=== PATIENT | female | born 2000 | race Caucasian/White ===

== ENCOUNTER 2022-03-13 18:50 | Inpatient (IN) | payer BC, MEDICAID ==
[~2022-03-13] VITALS: Ht 162.6 cm; Wt 93.4 kg
[2022-03-13] MEDS ORDERED: SODIUM CHLORIDE 0.9% 1,000 ML IV ONE ×3 (19:00→19:30)
[2022-03-13] MEDS ORDERED: InsuLIN R (HUMAN) 100 UNITS in SODIUM CHL 0.9% 99 ML IV SCH ×2 (19:30→23:00)
[2022-03-13] MEDS ORDERED: INSULIN LANTUS (GLARGINE) 1 /0.01ml (100units/ml) SC ONE ×3 (19:30→23:30)
[2022-03-13] MEDS ORDERED: DEXTROSE (50%) 50ML SYRG IV PRN ×2 (19:30→23:00)
[2022-03-13] MEDS: ACCU-CHEK COMFORT CURVE STRIP VI SCH ×3 (19:30→22:30)
[2022-03-13 19:42] LABS: Urine Amorphous Crystal MOD /hpf (None Seen); Urine Bacteria FEW /hpf (None Seen); Urine Blood 2+ /uL (Negative); Urine Mucus FEW (None Seen); Urine Specific Gravity 1.014 (1.001-1.035); Urine WBC 1 /hpf (0 - 5)
[2022-03-13] MEDS ORDERED: SODIUM BICARBONATE 8.4 % INJ 50ML VIAL IV ONE (20:15)
[2022-03-13 20:22] LABS: Basophils # (auto) 0.1 10 ^3/uL (0-0.2); Basophils % (auto) 0.3 % (0.0-2.0); Eosinophils # (auto) 0 10 ^3/uL (0-0.8); Hematocrit 43.4 % (36.0-46.0); Hemoglobin 13.8 g/dL (12.2-16.2); Lymphocytes % (auto) 5.9 % (10.0-50.0); Mean Corpuscular Hgb Conc. 31.9 g/dL (32.0-36.0); Mean Corpuscular Volume 94.2 fL (80.0-100.0); Monocytes # (auto) 1.9 10 ^3/uL (0-1.3); Monocytes % (auto) 10.6 % (0.0-12.0); Neutrophils # (auto) 14.6 10 ^3/uL (1.6-8.6); Neutrophils % (auto) 83.2 % (37.0-80.0); Red Blood Cells 4.61 10^6/uL (4.0-5.20); Red Cell Distribution Width 14.4 % (11.8-14.3); White Blood Cell 17.5 10^3/uL (4.4-10.8)
[2022-03-13] MEDS ORDERED: InsuLIN REG 1unit/0.01ml Soln (100units/ml) ONE (20:44)
[2022-03-13 20:48] LABS: Albumin 3.1 g/dL (3.4-5.0); BUN/Creatinine Ratio 12.8; Calcium 8.6 mg/dL (8.5-10.1); Potassium 3.7 mmol/L (3.5-5.1)
[2022-03-13 20:51] LABS: Bilirubin, Total 0.3 mg/dL (0.2-1.0); Total Protein 6.3 g/dL (6.4-8.2)
[2022-03-13] MEDS: SODIUM CHLORIDE 0.9% 1,000 ML IV SCH (23:00)
[2022-03-13] MEDS ORDERED: DOCUSATE SOD 100 MG CAP PO PRN (23:00)
[2022-03-13] MEDS ORDERED: LORazepam 0.5 MG TAB PO PRN (23:00)
[2022-03-13] MEDS ORDERED: TEMAZEPAM 15 MG CAP PO PRN (23:00)
[2022-03-13] MEDS ORDERED: MORPHINE SULFATE INJ 2 MG/ml SYRG IV PRN (23:00)
[2022-03-13] MEDS ORDERED: HYDROcodone-ACET 5/325MG TAB PO PRN (23:00)
[2022-03-13] MEDS ORDERED: D5W/SOD CHL 0.45%/KCL 20MEQ 1,000 ML IV SCH (23:00)
[2022-03-13] MEDS ORDERED: ACETAMINOPHEN 325 MG TAB PO PRN (23:00)
[2022-03-13] MEDS ORDERED: ONDANSETRON HCL 4 MG/2 ML VIAL IV PRN (23:00)
[2022-03-13] MEDS: cefTRIAXone 1GM/50ML D5W 50 ML IV SCH (23:37)
[2022-03-14] MEDS ORDERED: DEXTROSE (50%) 50ML SYRG IV PRN
[2022-03-14] MEDS ORDERED: ACCU-CHEK COMFORT CURVE STRIP VI SCH
[2022-03-14] MEDS: ACCU-CHEK COMFORT CURVE STRIP VI SCH ×13 (00:03→22:58)
[2022-03-14 00:12] LABS: BUN/Creatinine Ratio 11.7; Calcium 8.9 mg/dL (8.5-10.1); Potassium 3.3 mmol/L (3.5-5.1)
[2022-03-14] MEDS: SODIUM CHLORIDE 0.9% 1,000 ML IV SCH ×4 (01:00→18:23)
[2022-03-14] MEDS ORDERED: SODIUM CHLORIDE 0.9% 1,000 ML IV SCH (03:00)
[2022-03-14] MEDS: InsuLIN REG 1unit/0.01ml Soln (100units/ml) SC SCH ×2 (03:38)
[2022-03-14 04:58] LABS: Basophils # (auto) 0 10 ^3/uL (0-0.2); Basophils % (auto) 0.2 % (0.0-2.0); Eosinophils # (auto) 0 10 ^3/uL (0-0.8); Hematocrit 40.1 % (36.0-46.0); Hemoglobin 13.4 g/dL (12.2-16.2); Lymphocytes # (auto) 0.5 10 ^3/uL (0.4-5.4); Lymphocytes % (auto) 5.3 % (10.0-50.0); Mean Corpuscular Hemoglobin 30.2 pg (28.0-32.0); Mean Corpuscular Hgb Conc. 33.4 g/dL (32.0-36.0); Mean Corpuscular Volume 90.2 fL (80.0-100.0); Monocytes # (auto) 0.8 10 ^3/uL (0-1.3); Monocytes % (auto) 8.3 % (0.0-12.0); Neutrophils # (auto) 8.7 10 ^3/uL (1.6-8.6); Neutrophils % (auto) 86.2 % (37.0-80.0); Red Blood Cells 4.44 10^6/uL (4.0-5.20); Red Cell Distribution Width 14.1 % (11.8-14.3)
[2022-03-14 05:21] LABS: BUN/Creatinine Ratio 10.5; Calcium 7.9 mg/dL (8.5-10.1); Magnesium 1.7 mg/dL (1.6-2.6); Phosphorus 1.6 mg/dL (2.5-4.90); Potassium 3.3 mmol/L (3.5-5.1)
[2022-03-14] MEDS: D5W/SOD CHL 0.45%/KCL 20MEQ 1,000 ML IV SCH ×2 (06:30→08:04)
[2022-03-14] MEDS ORDERED: InsuLIN R (HUMAN) 100 UNITS in SODIUM CHL 0.9% 99 ML IV SCH ×2 (06:30→13:15)
[2022-03-14] MEDS ORDERED: INSULIN LANTUS (GLARGINE) 1 /0.01ml (100units/ml) SC SCH (10:00)
[2022-03-14] MEDS: INSULIN LANTUS (GLARGINE) 1 /0.01ml (100units/ml) SC SCH (10:34)
[2022-03-14 11:21] LABS: BUN/Creatinine Ratio 7.6; Calcium 8.1 mg/dL (8.5-10.1)
[2022-03-14 11:24] LABS: Potassium 2.6 mmol/L (3.5-5.1)
[2022-03-14] MEDS: POTASSIUM CHL 20MEQ/100ML 200 ML IV PRN ×2 (11:47→13:24)
[2022-03-14 12:51] LABS: Magnesium 1.7 mg/dL (1.6-2.6); Phosphorus 1.6 mg/dL (2.5-4.90)
[2022-03-14] MEDS ORDERED: POTASSIUM CHL 20MEQ/100ML 100 ML IV ONE (13:22)
[2022-03-14] MEDS: D5W/SOD CHLO 0.9% 1,000 ML IV PRN ×2 (13:30→21:16)
[2022-03-14] MEDS: InsuLIN R (HUMAN) 100 UNITS in SODIUM CHL 0.9% 99 ML IV SCH (13:35)
[2022-03-14 14:53] LABS: BUN/Creatinine Ratio 7.4; Calcium 8.7 mg/dL (8.5-10.1)
[2022-03-14] MEDS ORDERED: POTASSIUM PHOSPHATE 26.4 MEQ in SODIUM CHL 0.9% 100 ML IV ONE (15:15)
[2022-03-14 15:16] LABS: Potassium 2.4 mmol/L (3.5-5.1)
[2022-03-14] MEDS ORDERED: POTASSIUM EFFERVESENT TAB 25 MEQ PO ONE (15:30)
[2022-03-14] MEDS: POTASSIUM CHL 20MEQ/100ML 100 ML IV SCH ×3 (15:41→22:51)
[2022-03-14] MEDS: MAGNESIUM SULFATE 1GM/100ML 100 ML IV SCH ×2 (15:48→16:38)
[2022-03-14 19:10] LABS: BUN/Creatinine Ratio 7.9; Calcium 8.3 mg/dL (8.5-10.1)
[2022-03-14 19:14] LABS: Magnesium 2.6 mg/dL (1.6-2.6)
[2022-03-14 19:20] LABS: Phosphorus 0.8 mg/dL (2.5-4.90)
[2022-03-14] MEDS: cefTRIAXone 1GM/50ML D5W 50 ML IV SCH (23:58)
[2022-03-15] VITALS (23 sets, daily range): BP systolic 112–151; BP diastolic 68–122
[2022-03-15] MEDS: ACCU-CHEK COMFORT CURVE STRIP VI SCH ×16 (00:08→22:49)
[2022-03-15 01:32] LABS: Albumin 2.6 g/dL (3.4-5.0); BUN/Creatinine Ratio 7.4; Bilirubin, Total 0.3 mg/dL (0.2-1.0); Calcium 8.3 mg/dL (8.5-10.1); Total Protein 6.1 g/dL (6.4-8.2)
[2022-03-15 01:43] LABS: Phosphorus 0.6 mg/dL (2.5-4.90); Potassium 2.4 mmol/L (3.5-5.1)
[2022-03-15 01:45] LABS: Magnesium 2.3 mg/dL (1.6-2.6)
[2022-03-15] MEDS: POTASSIUM CHL 20MEQ/100ML 100 ML IV SCH ×2 (02:54→04:31)
[2022-03-15] MEDS: SODIUM CHLORIDE 0.9% 1,000 ML IV SCH ×3 (05:34→14:20)
[2022-03-15 06:01] LABS: Magnesium 1.9 mg/dL (1.6-2.6)
[2022-03-15 07:29] LABS: Phosphorus 0.9 mg/dL (2.5-4.90)
[2022-03-15] MEDS ORDERED: POTASSIUM PHOSPHATE 26.4 MEQ in SODIUM CHL 0.9% 100 ML IV ONE ×3 (09:00)
[2022-03-15] MEDS: INSULIN LANTUS (GLARGINE) 1 /0.01ml (100units/ml) SC SCH (10:56)
[2022-03-15] MEDS: D5W/SOD CHLO 0.9% 1,000 ML IV PRN (11:14)
[2022-03-15 12:53] LABS: Magnesium 1.8 mg/dL (1.6-2.6); Phosphorus 1.3 mg/dL (2.5-4.90)
[2022-03-15 12:57] LABS: BUN/Creatinine Ratio 6.8; Calcium 7.7 mg/dL (8.5-10.1)
[2022-03-15] MEDS: InsuLIN R (HUMAN) 100 UNITS in SODIUM CHL 0.9% 99 ML IV SCH ×4 (13:30→22:51)
[2022-03-15 13:32] LABS: Potassium 2.6 mmol/L (3.5-5.1)
[2022-03-15] MEDS ORDERED: POTASSIUM EFFERVESENT TAB 25 MEQ PO ONE (15:00)
[2022-03-15] MEDS ORDERED: POTASSIUM CHLORIDE 60 MEQ, LIDOCAINE 1% (LOCAL ANESTH.) 6 ML in SODIUM CHL 0.9% 500 ML IV ONE (15:00)
[2022-03-15 18:18] LABS: Magnesium 1.8 mg/dL (1.6-2.6); Phosphorus 1.4 mg/dL (2.5-4.90)
[2022-03-15] MEDS ORDERED: guaiFENesin-DM 100/10mg/5ml SYR ONE (21:46)
[2022-03-16] VITALS (43 sets, daily range): BP systolic 113–154; BP diastolic 73–104
[2022-03-16] MEDS: ACCU-CHEK COMFORT CURVE STRIP VI SCH ×17 (00:31→23:57)
[2022-03-16] MEDS: SODIUM CHLORIDE 0.9% 1,000 ML IV SCH ×4 (02:00→17:00)
[2022-03-16 04:28] LABS: Basophils # (auto) 0 10 ^3/uL (0-0.2); Basophils % (auto) 0.6 % (0.0-2.0); Eosinophils # (auto) 0.1 10 ^3/uL (0-0.8); Eosinophils % (auto) 1.6 % (0.0-7.0); Hematocrit 34.6 % (36.0-46.0); Hemoglobin 11.8 g/dL (12.2-16.2); Lymphocytes # (auto) 1.5 10 ^3/uL (0.4-5.4); Mean Corpuscular Hemoglobin 30.2 pg (28.0-32.0); Mean Corpuscular Hgb Conc. 34.2 g/dL (32.0-36.0); Mean Corpuscular Volume 88.2 fL (80.0-100.0); Monocytes # (auto) 0.7 10 ^3/uL (0-1.3); Monocytes % (auto) 11.4 % (0.0-12.0); Neutrophils # (auto) 3.6 10 ^3/uL (1.6-8.6); Neutrophils % (auto) 61.4 % (37.0-80.0); Nucleated Red Blood Cells % 0.1 %; Red Blood Cells 3.92 10^6/uL (4.0-5.20); Red Cell Distribution Width 14.4 % (11.8-14.3); White Blood Cell 5.8 10^3/uL (4.4-10.8)
[2022-03-16 04:46] LABS: BUN/Creatinine Ratio 3.3; Calcium 7.7 mg/dL (8.5-10.1); Magnesium 1.6 mg/dL (1.6-2.6)
[2022-03-16 05:11] LABS: Phosphorus 0.9 mg/dL (2.5-4.90); Potassium 2.6 mmol/L (3.5-5.1)
[2022-03-16] MEDS: InsuLIN R (HUMAN) 100 UNITS in SODIUM CHL 0.9% 99 ML IV SCH ×5 (05:38→23:54)
[2022-03-16] MEDS ORDERED: POTASSIUM CHLORIDE 60 MEQ, LIDOCAINE 1% (LOCAL ANESTH.) 6 ML in SODIUM CHL 0.9% 500 ML IV ONE (08:15)
[2022-03-16] MEDS ORDERED: POTASSIUM EFFERVESENT TAB 25 MEQ PO ONE ×2 (08:15→21:45)
[2022-03-16] MEDS: MAGNESIUM SULFATE 1GM/100ML 100 ML IV SCH ×2 (08:41→09:49)
[2022-03-16] MEDS: guaiFENesin-DM 100/10mg/5ml SYR PO PRN (08:43)
[2022-03-16] MEDS: INSULIN LANTUS (GLARGINE) 1 /0.01ml (100units/ml) SC SCH (09:52)
[2022-03-16] MEDS: D5W/SOD CHLO 0.9% 1,000 ML IV PRN (10:24)
[2022-03-16] MEDS: THROAT LOZENGES(CEPASTAT) MT PRN ×2 (17:00→19:07)
[2022-03-16 19:21] LABS: BUN/Creatinine Ratio 3.3; Calcium 7.8 mg/dL (8.5-10.1); Potassium 3.1 mmol/L (3.5-5.1)
[2022-03-17] VITALS (22 sets, daily range): BP systolic 103–141; BP diastolic 60–101
[2022-03-17] MEDS: ACCU-CHEK COMFORT CURVE STRIP VI SCH ×9 (00:21→21:48)
[2022-03-17 00:52] LABS: BUN/Creatinine Ratio 3.1; Calcium 7.8 mg/dL (8.5-10.1); Magnesium 2.1 mg/dL (1.6-2.6)
[2022-03-17 01:12] LABS: Phosphorus 0.9 mg/dL (2.5-4.90); Potassium 2.8 mmol/L (3.5-5.1)
[2022-03-17] MEDS ORDERED: POTASSIUM PHOSPHATE 26.4 MEQ in SODIUM CHL 0.9% 100 ML IV ONE (02:00)
[2022-03-17] MEDS ORDERED: POTASSIUM CHL 20 Meq TABLET PO ONE (02:00)
[2022-03-17] MEDS: InsuLIN R (HUMAN) 100 UNITS in SODIUM CHL 0.9% 99 ML IV SCH (06:23)
[2022-03-17] MEDS: D5W/SOD CHLO 0.9% 1,000 ML IV PRN (08:04)
[2022-03-17 10:03] LABS: BUN/Creatinine Ratio 4.9; Calcium 8.3 mg/dL (8.5-10.1); Magnesium 2.1 mg/dL (1.6-2.6); Phosphorus 1.3 mg/dL (2.5-4.90); Potassium 3.5 mmol/L (3.5-5.1)
[2022-03-17] MEDS: INSULIN LANTUS (GLARGINE) 1 /0.01ml (100units/ml) SC SCH (10:07)
[2022-03-17] MEDS ORDERED: DEXTROSE (50%) 50ML SYRG IV PRN (10:30)
[2022-03-17] MEDS: InsuLIN REG 1unit/0.01ml Soln (100units/ml) SC SCH ×2 (11:31→16:50)
[2022-03-17] MEDS: SODIUM CHLORIDE 0.9% 1,000 ML IV SCH ×5 (17:54→22:40)
[2022-03-17 18:26] LABS: BUN/Creatinine Ratio 4.7; Calcium 8.4 mg/dL (8.5-10.1); Potassium 3.4 mmol/L (3.5-5.1)
[2022-03-17 18:35] LABS: Basophils # (auto) 0 10 ^3/uL (0-0.2); Basophils % (auto) 0.5 % (0.0-2.0); Eosinophils # (auto) 0.1 10 ^3/uL (0-0.8); Eosinophils % (auto) 2.9 % (0.0-7.0); Hematocrit 39.1 % (36.0-46.0); Lymphocytes # (auto) 1.4 10 ^3/uL (0.4-5.4); Mean Corpuscular Hemoglobin 30.2 pg (28.0-32.0); Mean Corpuscular Hgb Conc. 33.4 g/dL (32.0-36.0); Mean Corpuscular Volume 90.6 fL (80.0-100.0); Monocytes # (auto) 0.5 10 ^3/uL (0-1.3); Monocytes % (auto) 10.5 % (0.0-12.0); Neutrophils # (auto) 2.6 10 ^3/uL (1.6-8.6); Neutrophils % (auto) 55.1 % (37.0-80.0); Nucleated Red Blood Cells % 0.2 %; Red Blood Cells 4.31 10^6/uL (4.0-5.20); Red Cell Distribution Width 14.6 % (11.8-14.3); White Blood Cell 4.7 10^3/uL (4.4-10.8)
[2022-03-17] MEDS: guaiFENesin-DM 100/10mg/5ml SYR PO PRN (22:00)
[2022-03-17] MEDS ORDERED: InsuLIN REG 1unit/0.01ml Soln (100units/ml) SC SCH (22:00)
[2022-03-18] MEDS: SODIUM CHLORIDE 0.9% 1,000 ML IV SCH ×2 (02:20→11:57)
[2022-03-18 05:00] VITALS: BP 107/65
[2022-03-18] MEDS: ACCU-CHEK COMFORT CURVE STRIP VI SCH ×2 (06:35→11:52)
[2022-03-18] MEDS: InsuLIN REG 1unit/0.01ml Soln (100units/ml) SC SCH ×2 (06:39→11:57)
[2022-03-18 09:00] VITALS: BP 128/76
[2022-03-18] MEDS ORDERED: INSULIN LANTUS (GLARGINE) 1 /0.01ml (100units/ml) SC SCH (10:00)
[2022-03-18 12:04] VITALS: BP 128/76
[2022-03-18 12:51] VITALS: BP 125/93
== END 2022-03-18 14:20 | disposition home or self-care (01) | DRG 639 ==
LOC: ER 19:02 → TELE 22:57 → ICU WEST 03-15 12:31 → TELE-WESTW 03-17 17:13
PROVIDERS: ADMIT Hospitalist; ATTEND Internal Medicine
DX: E11.10 Type 2 diabetes mellitus with ketoacidosis without coma (principal); D72.829 Elevated white blood cell count, unspecified; E66.01 Morbid (severe) obesity due to excess calories; E83.39 Other disorders of phosphorus metabolism; E87.8 Other disorders of electrolyte and fluid balance, not elsewhere classified; Z20.822 Contact with and (suspected) exposure to COVID-19; E11.65 Type 2 diabetes mellitus with hyperglycemia; E87.6 Hypokalemia; Z91.14 Patient's other noncompliance with medication regimen; Z79.84 Long term (current) use of oral hypoglycemic drugs; Z68.32 Body mass index [BMI] 32.0-32.9, adult
CPT/HCPCS: 36415; 36600; 71045; 80048; 80053; 81001; 82010; 82805; 82962; 83036; 83735; 83930; 84100; 85025; 87081; 87086; 93005; 96365; 96366; 96372; 96375; 97163; 99291; G0378; J0696; J1815; J2001; J2405; J3480; J7042

== ENCOUNTER 2023-06-02 15:55 | Inpatient (IN) | payer BC, MEDICAID ==
[~2023-06-02] VITALS: Ht 162.6 cm; Wt 86.2 kg
[2023-06-02] MEDS ORDERED: ONDANSETRON HCL 4 MG/2 ML VIAL IM ONE (17:00)
[2023-06-02] MEDS ORDERED: DICYCLOMINE HCL (10MG/ML) 2 ML AMPULE IM ONE (17:00)
[2023-06-02] MEDS ORDERED: ACETAMINOPHEN 500 MG TAB PO ONE (17:00)
[2023-06-02 17:03] LABS: Basophils # (auto) 0 10 ^3/uL (0-0.2); Basophils % (auto) 0.5 % (0.0-2.0); Eosinophils # (auto) 0 10 ^3/uL (0-0.8); Eosinophils % (auto) 0.4 % (0.0-7.0); Hematocrit 49.3 % (36.0-46.0); Hemoglobin 16.4 g/dL (12.2-16.2); Lymphocytes # (auto) 0.4 10 ^3/uL (0.4-5.4); Lymphocytes % (auto) 6.5 % (10.0-50.0); Mean Corpuscular Hemoglobin 31.2 pg (28.0-32.0); Mean Corpuscular Hgb Conc. 33.2 g/dL (32.0-36.0); Monocytes # (auto) 0.3 10 ^3/uL (0-1.3); Monocytes % (auto) 5.4 % (0.0-12.0); Neutrophils # (auto) 5.4 10 ^3/uL (1.6-8.6); Neutrophils % (auto) 87.2 % (37.0-80.0); Nucleated Red Blood Cells % 0.1 %; Red Blood Cells 5.25 10^6/uL (4.0-5.20); Red Cell Distribution Width 13.6 % (11.8-14.3); White Blood Cell 6.2 10^3/uL (4.4-10.8)
[2023-06-02 17:36] LABS: Alanine Aminotransferase 15 U/L (7-40); Albumin 4.9 g/dL (3.2-4.8); Alkaline Phosphatase 136 U/L (46-116); Anion Gap 17.00001 (5-15); Aspartate Aminotransferase 11 U/L (13-40); BUN/Creatinine Ratio 7.2 (10.0-20.0); Blood Urea Nitrogen 8 mg/dL (9-23); Calcium 9.4 mg/dL (8.5-10.1); Chloride 111 mmol/L (98-107); Glucose 278 mg/dL (74-106); Sodium 138 mmol/L (136-145)
[2023-06-02 17:37] LABS: Bilirubin, Total 0.4 mg/dL (0.2-1.0); Total Protein 7.9 g/dL (5.7-8.2)
[2023-06-02 18:31] LABS: Urine Bacteria MANY /hpf (None Seen); Urine Blood 1+ /uL (Negative); Urine Clarity CLOUDY (Clear); Urine Color Colorless (Yellow); Urine Protein, UAD 2+ (Negative); Urine Specific Gravity 1.023 (1.001-1.035); Urine Urobilinogen Normal (Negative); Urine WBC 245 /hpf (0 - 5); Urine WBC Clumps PRESENT /hpf (None Seen); Urine pH 5.5 (5.0-8.0)
[2023-06-02 18:38] LABS: Carbon Dioxide < 10 mmol/L (20-30)
[2023-06-02] MEDS ORDERED: DEXTROSE (50%) 50ML SYRG IV PRN (19:00)
[2023-06-02] MEDS ORDERED: INSULIN DRIP 100 UNIT/100ML 100 ML IV SCH (19:00)
[2023-06-02 19:16] LABS: COVID19 ANTIGEN SOFIA FIA NEGATIVE (NEGATIVE); Rapid Influenza A Negative (Negative); Rapid Influenza B Negative (Negative)
[2023-06-02 19:47] LABS: Chloride 109 mmol/L (98-107); Potassium 4.6 mmol/L (3.5-5.1); Sodium 135 mmol/L (136-145)
[2023-06-02 19:48] LABS: Anion Gap 16.00001 (5-15)
[2023-06-02 19:49] LABS: Calcium 8.8 mg/dL (8.7-10.4)
[2023-06-02 19:52] LABS: Phosphorus 2.3 mg/dL (2.4-5.1)
[2023-06-02 19:54] LABS: BUN/Creatinine Ratio 8.5 (10.0-20.0); Blood Urea Nitrogen 9 mg/dL (9-23); Glucose 256 mg/dL (74-106)
[2023-06-02 19:57] LABS: Carbon Dioxide < 10 mmol/L (20-30)
[2023-06-02] MEDS ORDERED: LACTULOSE 20Gm/30ML SOLN PO ONE (20:00)
[2023-06-02] MEDS ORDERED: CEFTRIAXONE SODIUM 2 GM in D5W 5% 100 ML IV ONE (20:00)
[2023-06-02] MEDS ORDERED: ACETAMINOPHEN 325 MG TAB PO PRN (20:45)
[2023-06-02] MEDS ORDERED: ONDANSETRON HCL 4 MG/2 ML VIAL IV PRN (20:45)
[2023-06-02] MEDS ORDERED: SODIUM BICARBONATE 8.4 % INJ 50ML VIAL IV ONE (20:45)
[2023-06-02] MEDS ORDERED: hydrALAZINE HCL 10 MG TAB PO PRN (20:45)
[2023-06-02] MEDS ORDERED: HYDROcodone-ACET 5/325MG TAB PO PRN (20:45)
[2023-06-02] MEDS: ACCU-CHEK COMFORT CURVE STRIP VI SCH ×3 (21:00→22:30)
[2023-06-02] MEDS: D5W/SOD CHLO 0.9% 1,000 ML IV SCH (22:16)
[2023-06-02] MEDS: SODIUM CHLORIDE 0.9% 1,000 ML IV SCH (22:16)
[2023-06-02] MEDS: FAMOTIDINE (10MG/ML) 2ML VL IV SCH (22:16)
[2023-06-02] MEDS ORDERED: SODIUM CHLORIDE 0.9% 1,000 ML IV SCH (23:00)
[2023-06-03] VITALS: PULSE 114; RESP 18; O2SAT 99
[2023-06-03] MEDS: ACCU-CHEK COMFORT CURVE STRIP VI SCH ×15 (00:18→20:14)
[2023-06-03] MEDS: SENNA 8.6 MG TAB PO SCH ×3 (00:21→21:37)
[2023-06-03] MEDS ORDERED: cefTRIAXone 1GM/50ML D5W 100 ML IV ONE (00:25)
[2023-06-03 02:14] LABS: Chloride 109 mmol/L (98-107); Potassium 3.2 mmol/L (3.5-5.1); Sodium 138 mmol/L (136-145)
[2023-06-03 02:15] LABS: Anion Gap 19.00001 (5-15); Calcium 8.1 mg/dL (8.7-10.4)
[2023-06-03 02:20] LABS: BUN/Creatinine Ratio 5.2 (10.0-20.0); Blood Urea Nitrogen 5 mg/dL (9-23); Glucose 232 mg/dL (74-106); Magnesium 2.1 mg/dL (1.6-2.6)
[2023-06-03 02:22] LABS: Phosphorus 1.9 mg/dL (2.4-5.1)
[2023-06-03 02:27] LABS: Carbon Dioxide < 10 mmol/L (20-30)
[2023-06-03 02:30] VITALS: PULSE 90; RESP 16; O2SAT 95
[2023-06-03] MEDS: SODIUM CHLORIDE 0.9% 1,000 ML IV SCH (04:45)
[2023-06-03] MEDS: D5W/SOD CHLO 0.9% 1,000 ML IV SCH ×3 (04:45→18:00)
[2023-06-03] MEDS ORDERED: SODIUM BICARBONATE 8.4 % INJ 50ML VIAL IV ONE (05:30)
[2023-06-03] MEDS ORDERED: POTASSIUM CHLORIDE 40 MEQ, LIDOCAINE 1% (LOCAL ANESTH.) 4 ML in SODIUM CHL 0.9% 250 ML IV ONE (06:30)
[2023-06-03 06:34] LABS: Chloride 112 mmol/L (98-107); Potassium 3.4 mmol/L (3.5-5.1); Sodium 138 mmol/L (136-145)
[2023-06-03 06:36] LABS: Anion Gap 16.00001 (5-15)
[2023-06-03 06:37] LABS: Calcium 8.3 mg/dL (8.5-10.1)
[2023-06-03 06:42] LABS: Glucose 222 mg/dL (74-106); Triglycerides 198 mg/dL (< 150)
[2023-06-03 06:43] LABS: LDL Cholesterol 153 mg/dL (< 100)
[2023-06-03 06:44] LABS: Cholesterol 196 mg/dL (< 200); HDL Cholesterol 29 mg/dL (40-59)
[2023-06-03 07:08] LABS: Blood Urea Nitrogen < 5 mg/dL (9-23)
[2023-06-03 07:18] LABS: Carbon Dioxide < 10 mmol/L (20-30)
[2023-06-03 07:39] LABS: Amphetamine Screen, Urine Neg (NEGATIVE)
[2023-06-03 07:41] LABS: Barbiturate Scree,Urine Neg (NEGATIVE); Benzodiazephine Screen, Urine Neg (NEGATIVE); Cocaine Screen, Urine Neg (NEGATIVE)
[2023-06-03 07:42] LABS: Opiate Scree,Urine Neg (NEGATIVE)
[2023-06-03 07:43] LABS: Cannabinoid Screen, Urine Neg (NEGATIVE); Phencyclidine Screen, Urine Neg (NEGATIVE)
[2023-06-03 07:44] LABS: Magnesium 2.1 mg/dL (1.6-2.6)
[2023-06-03 07:50] VITALS: PULSE 99; RESP 16; O2SAT 100
[2023-06-03] MEDS: FAMOTIDINE (10MG/ML) 2ML VL IV SCH (10:24)
[2023-06-03] MEDS: POLYETHYLENE GLYCOL 17 GM PWDR PO SCH (10:24)
[2023-06-03 12:05] LABS: Chloride 117 mmol/L (98-107); Potassium 3.3 mmol/L (3.5-5.1); Sodium 142 mmol/L (136-145)
[2023-06-03 12:06] LABS: Anion Gap 15 (5-15); Carbon Dioxide 10 mmol/L (20-30)
[2023-06-03 12:07] LABS: Calcium 7.9 mg/dL (8.7-10.4)
[2023-06-03 12:12] LABS: Glucose 201 mg/dL (74-106); Magnesium 1.9 mg/dL (1.6-2.6)
[2023-06-03 12:14] LABS: BUN/Creatinine Ratio 6.3 (10.0-20.0); Blood Urea Nitrogen < 5 mg/dL (9-23); Phosphorus 1.1 mg/dL (2.4-5.1)
[2023-06-03] MEDS ORDERED: DEXTROSE (50%) 50ML SYRG IV PRN (17:00)
[2023-06-03] MEDS: INSULIN LANTUS (GLARGINE) 1 /0.01ml (100units/ml) SC SCH (18:00)
[2023-06-03 18:08] LABS: Chloride 117 mmol/L (98-107); Potassium 3.1 mmol/L (3.5-5.1); Sodium 142 mmol/L (136-145)
[2023-06-03 18:09] LABS: Anion Gap 13 (5-15); Calcium 8.1 mg/dL (8.7-10.4); Carbon Dioxide 12 mmol/L (20-30)
[2023-06-03 18:14] LABS: Glucose 174 mg/dL (74-106)
[2023-06-03 18:15] LABS: Magnesium 1.9 mg/dL (1.6-2.6)
[2023-06-03 18:16] LABS: Phosphorus 1.5 mg/dL (2.4-5.1)
[2023-06-03 18:17] LABS: BUN/Creatinine Ratio 6.2 (10.0-20.0); Blood Urea Nitrogen < 5 mg/dL (9-23)
[2023-06-03 19:40] VITALS: PULSE 89; RESP 14; O2SAT 96
[2023-06-03] MEDS: InsuLIN REG 1unit/0.01ml Soln (100units/ml) SC SCH (20:21)
[2023-06-03] MEDS: cefTRIAXone 1GM/50ML D5W 50 ML IV SCH (21:43)
[2023-06-04] MEDS: ACCU-CHEK COMFORT CURVE STRIP VI SCH ×15 (00:44→22:32)
[2023-06-04] MEDS: InsuLIN REG 1unit/0.01ml Soln (100units/ml) SC SCH (00:53)
[2023-06-04 01:05] LABS: Anion Gap 15.00001 (5-15); Chloride 116 mmol/L (98-107); Potassium 3.2 mmol/L (3.5-5.1); Sodium 141 mmol/L (136-145)
[2023-06-04 01:06] LABS: Calcium 8.6 mg/dL (8.7-10.4)
[2023-06-04 01:10] LABS: Glucose 239 mg/dL (74-106)
[2023-06-04 01:11] LABS: Magnesium 2.3 mg/dL (1.6-2.6)
[2023-06-04 01:13] LABS: Phosphorus 1.6 mg/dL (2.4-5.1)
[2023-06-04 01:14] LABS: Blood Urea Nitrogen < 5 mg/dL (9-23)
[2023-06-04 01:15] LABS: Carbon Dioxide < 10 mmol/L (20-30)
[2023-06-04] MEDS ORDERED: SODIUM BICARBONATE 8.4 % INJ 50ML VIAL IV ONE (02:15)
[2023-06-04] MEDS: INSULIN DRIP 100 UNIT/100ML 100 ML IV SCH (02:58)
[2023-06-04] MEDS: D5W/SOD CHLO 0.9% 1,000 ML IV SCH (03:01)
[2023-06-04 08:24] VITALS: PULSE 103; RESP 18; O2SAT 100
[2023-06-04 09:42] LABS: Chloride 116 mmol/L (98-107); Potassium 2.7 mmol/L (3.5-5.1)
[2023-06-04 09:43] LABS: Carbon Dioxide 13 mmol/L (20-30)
[2023-06-04 09:44] LABS: Calcium 8.6 mg/dL (8.5-10.1)
[2023-06-04 09:45] LABS: Anion Gap 17 (5-15); Sodium 146 mmol/L (136-145)
[2023-06-04 09:48] LABS: Glucose 170 mg/dL (74-106)
[2023-06-04 09:54] LABS: BUN/Creatinine Ratio 6.9 (10.0-20.0); Blood Urea Nitrogen < 5 mg/dL (9-23)
[2023-06-04] MEDS: POLYETHYLENE GLYCOL 17 GM PWDR PO SCH (10:00)
[2023-06-04] MEDS: SENNA 8.6 MG TAB PO SCH ×2 (10:00→22:00)
[2023-06-04] MEDS ORDERED: D5W/SOD CHL 0.45% 1,000 ML IV ONE (10:30)
[2023-06-04] MEDS ORDERED: POTASSIUM CHLORIDE 60 MEQ, LIDOCAINE 1% (LOCAL ANESTH.) 6 ML in SODIUM CHL 0.9% 500 ML IV ONE (10:30)
[2023-06-04] MEDS ORDERED: POTASSIUM CHL 20MEQ/100ML 100 ML IV ONE (11:00)
[2023-06-04] MEDS: FAMOTIDINE (10MG/ML) 2ML VL IV SCH (11:25)
[2023-06-04] MEDS: D5W/SOD CHL 0.45%/KCL 20MEQ 1,000 ML IV SCH (13:02)
[2023-06-04 15:28] LABS: Chloride 113 mmol/L (98-107); Potassium 3.2 mmol/L (3.5-5.1); Sodium 140 mmol/L (136-145)
[2023-06-04 15:29] LABS: Calcium 8.4 mg/dL (8.7-10.4); Carbon Dioxide 13 mmol/L (20-30)
[2023-06-04 15:34] LABS: BUN/Creatinine Ratio 6.4 (10.0-20.0); Blood Urea Nitrogen < 5 mg/dL (9-23); Glucose 231 mg/dL (74-106)
[2023-06-04 15:35] LABS: Anion Gap 14 (5-15)
[2023-06-04] MEDS: INSULIN LANTUS (GLARGINE) 1 /0.01ml (100units/ml) SC SCH (17:53)
[2023-06-04 19:20] VITALS: PULSE 97; RESP 18; O2SAT 100
[2023-06-04 21:35] LABS: Chloride 111 mmol/L (98-107); Potassium 3.1 mmol/L (3.5-5.1); Sodium 141 mmol/L (136-145)
[2023-06-04 21:36] LABS: Anion Gap 16 (5-15); Calcium 9.2 mg/dL (8.5-10.1); Carbon Dioxide 14 mmol/L (20-30)
[2023-06-04 21:41] LABS: Glucose 270 mg/dL (74-106)
[2023-06-04 21:42] LABS: Blood Urea Nitrogen < 5 mg/dL (9-23)
[2023-06-04] MEDS: cefTRIAXone 1GM/50ML D5W 50 ML IV SCH (22:06)
[2023-06-05] MEDS: ACCU-CHEK COMFORT CURVE STRIP VI SCH ×10 (00:33→13:30)
[2023-06-05 03:17] LABS: Basophils # (auto) 0.1 10 ^3/uL (0-0.2); Basophils % (auto) 1.5 % (0.0-2.0); Eosinophils # (auto) 0.2 10 ^3/uL (0-0.8); Eosinophils % (auto) 3.5 % (0.0-7.0); Hematocrit 39.9 % (36.0-46.0); Hemoglobin 13.3 g/dL (12.2-16.2); Lymphocytes % (auto) 18.2 % (10.0-50.0); Mean Corpuscular Hemoglobin 30.9 pg (28.0-32.0); Mean Corpuscular Hgb Conc. 33.3 g/dL (32.0-36.0); Mean Corpuscular Volume 92.7 fL (80.0-100.0); Monocytes # (auto) 0.8 10 ^3/uL (0-1.3); Monocytes % (auto) 13.9 % (0.0-12.0); Neutrophils # (auto) 3.5 10 ^3/uL (1.6-8.6); Neutrophils % (auto) 62.9 % (37.0-80.0); Nucleated Red Blood Cells % 0.1 %; Red Cell Distribution Width 13.9 % (11.8-14.3); White Blood Cell 5.5 10^3/uL (4.4-10.8)
[2023-06-05 03:23] LABS: Albumin 3.6 g/dL (3.2-4.8); Alkaline Phosphatase 108 U/L (46-116); Anion Gap 11 (5-15); Aspartate Aminotransferase 9 U/L (13-40); Calcium 8.4 mg/dL (8.7-10.4); Carbon Dioxide 16 mmol/L (20-30); Chloride 115 mmol/L (98-107); Glucose 172 mg/dL (74-106); Potassium 2.8 mmol/L (3.5-5.1); Sodium 142 mmol/L (136-145)
[2023-06-05 03:24] LABS: Bilirubin, Total 0.5 mg/dL (0.2-1.0); Total Protein 6.1 g/dL (5.7-8.2)
[2023-06-05] MEDS: INSULIN DRIP 100 UNIT/100ML 100 ML IV SCH (03:25)
[2023-06-05 03:32] LABS: Alanine Aminotransferase < 9 U/L (7-40); BUN/Creatinine Ratio 6.7 (10.0-20.0); Blood Urea Nitrogen < 5 mg/dL (9-23)
[2023-06-05] MEDS: D5W/SOD CHL 0.45%/KCL 20MEQ 1,000 ML IV SCH (05:53)
[2023-06-05] MEDS: POTASSIUM CHL 20MEQ/100ML 100 ML IV SCH ×4 (06:07→13:40)
[2023-06-05 07:51] VITALS: PULSE 92; RESP 17; O2SAT 99
[2023-06-05 10:03] LABS: Alanine Aminotransferase 10 U/L (7-40); Albumin 3.6 g/dL (3.2-4.8); Alkaline Phosphatase 98 U/L (46-116); Anion Gap 13 (5-15); Aspartate Aminotransferase 9 U/L (13-40); Bilirubin, Total 0.5 mg/dL (0.2-1.0); Calcium 8.9 mg/dL (8.5-10.1); Carbon Dioxide 16 mmol/L (20-30); Chloride 113 mmol/L (98-107); Glucose 181 mg/dL (74-106); Phosphorus 1.7 mg/dL (2.4-5.1); Sodium 142 mmol/L (136-145); Total Protein 6.1 g/dL (5.7-8.2)
[2023-06-05 10:06] LABS: BUN/Creatinine Ratio 6.3 (10.0-20.0); Blood Urea Nitrogen < 5 mg/dL (9-23)
[2023-06-05 10:24] LABS: Magnesium 1.9 mg/dL (1.6-2.6)
[2023-06-05] MEDS: FAMOTIDINE (10MG/ML) 2ML VL IV SCH (10:26)
[2023-06-05] MEDS: POLYETHYLENE GLYCOL 17 GM PWDR PO SCH (10:26)
[2023-06-05] MEDS: SENNA 8.6 MG TAB PO SCH ×2 (10:26→23:07)
[2023-06-05] MEDS: INSULIN LANTUS (GLARGINE) 1 /0.01ml (100units/ml) SC SCH ×2 (12:49→23:25)
[2023-06-05] MEDS: SODIUM BICARBONATE 650 MG TAB PO SCH ×2 (14:12→23:07)
[2023-06-05] MEDS: InsuLIN REG 1unit/0.01ml Soln (100units/ml) SC SCH ×2 (16:06→20:13)
[2023-06-05 16:40] LABS: Chloride 111 mmol/L (98-107); Potassium 2.9 mmol/L (3.5-5.1); Sodium 141 mmol/L (136-145)
[2023-06-05 16:41] LABS: Anion Gap 11 (5-15); Carbon Dioxide 19 mmol/L (20-30)
[2023-06-05 16:42] LABS: Calcium 9.1 mg/dL (8.5-10.1)
[2023-06-05 16:46] LABS: Glucose 219 mg/dL (74-106)
[2023-06-05 16:49] LABS: BUN/Creatinine Ratio 6.8 (10.0-20.0); Blood Urea Nitrogen < 5 mg/dL (9-23)
[2023-06-05 17:11] LABS: Magnesium 1.9 mg/dL (1.6-2.6)
[2023-06-05 18:43] VITALS: PULSE 70; RESP 16; TEMP 97.6
[2023-06-05] MEDS ORDERED: INSLANTI SC (19:58)
[2023-06-05 20:00] VITALS: PULSE 76; RESP 16; O2SAT 100
[2023-06-05 22:00] VITALS: BP 109/80; PULSE 85; RESP 16; TEMP 98.2; O2SAT 100
[2023-06-05] MEDS: cefTRIAXone 1GM/50ML D5W 50 ML IV SCH (23:07)
[2023-06-06] VITALS (8 sets, daily range): BP systolic 99–148; BP diastolic 64–74; PULSE 59–92; RESP 16–21; TEMP 97.3–98.4; O2SAT 97–100
[2023-06-06] MEDS: InsuLIN REG 1unit/0.01ml Soln (100units/ml) SC SCH ×6 (03:47→20:11)
[2023-06-06] MEDS: SODIUM BICARBONATE 650 MG TAB PO SCH ×3 (06:40→22:14)
[2023-06-06] MEDS: INSULIN LANTUS (GLARGINE) 1 /0.01ml (100units/ml) SC SCH ×2 (09:51→22:18)
[2023-06-06] MEDS: SENNA 8.6 MG TAB PO SCH ×2 (09:54→22:00)
[2023-06-06] MEDS: POLYETHYLENE GLYCOL 17 GM PWDR PO SCH (09:54)
[2023-06-06 10:13] LABS: Anion Gap 11 (5-15); Carbon Dioxide 23 mmol/L (20-30); Chloride 108 mmol/L (98-107); Potassium 2.9 mmol/L (3.5-5.1); Sodium 142 mmol/L (136-145)
[2023-06-06 10:14] LABS: Calcium 9.3 mg/dL (8.5-10.1)
[2023-06-06 10:19] LABS: Glucose 267 mg/dL (74-106)
[2023-06-06 10:32] LABS: BUN/Creatinine Ratio 6.3 (10.0-20.0); Blood Urea Nitrogen < 5 mg/dL (9-23)
[2023-06-06 10:53] LABS: Magnesium 1.7 mg/dL (1.6-2.6)
[2023-06-06] MEDS ORDERED: POTASSIUM CHL 20 Meq TABLET PO ONE (11:15)
[2023-06-06] MEDS: MAGNESIUM SULFATE 1GM/100ML 100 ML IV SCH ×2 (11:47→12:51)
[2023-06-06] MEDS ORDERED: INSLISPI SC ×3 (14:32→14:33)
[2023-06-06] MEDS ORDERED: AMOX500T86 PO (14:32)
[2023-06-06] MEDS ORDERED: INSLANTI SC (14:32)
[2023-06-06 14:46] LABS: Potassium 2.9 mmol/L (3.5-5.1)
[2023-06-06 14:53] LABS: Magnesium 2.5 mg/dL (1.6-2.6)
[2023-06-06] MEDS ORDERED: POTASSIUM EFFERVESENT TAB 25 MEQ PO ONE (15:15)
[2023-06-06] MEDS ORDERED: POTASSIUM CHLORIDE 40 MEQ, LIDOCAINE 1% (LOCAL ANESTH.) 4 ML in SODIUM CHL 0.9% 250 ML IV ONE (15:15)
[2023-06-06] MEDS: ACCU-CHEK COMFORT CURVE STRIP VI SCH ×2 (15:52→20:09)
[2023-06-07] MEDS: ACCU-CHEK COMFORT CURVE STRIP VI SCH ×4 (00:26→12:16)
[2023-06-07] MEDS ORDERED: POTASSIUM CHL 20 Meq TABLET PO ONE ×2 (00:30→07:45)
[2023-06-07] MEDS: InsuLIN REG 1unit/0.01ml Soln (100units/ml) SC SCH ×4 (04:00→12:17)
[2023-06-07 05:00] VITALS: BP 116/70; PULSE 85; RESP 18; TEMP 98; O2SAT 98
[2023-06-07] MEDS: SODIUM BICARBONATE 650 MG TAB PO SCH (05:29)
[2023-06-07 08:00] VITALS: PULSE 79; PULSE 80; RESP 17; O2SAT 100
[2023-06-07] MEDS: SENNA 8.6 MG TAB PO SCH (08:00)
[2023-06-07 09:20] VITALS: BP 117/71; PULSE 99; RESP 16; TEMP 97.9; O2SAT 99
[2023-06-07] MEDS: INSULIN LANTUS (GLARGINE) 1 /0.01ml (100units/ml) SC SCH (10:46)
== END 2023-06-07 13:59 | disposition home health service (06) | DRG 638 ==
LOC: ER 15:55 → TELE 22:19 → TELE-WESTW 06-05 18:07
PROVIDERS: ADMIT Nurse Practitioner Family; ATTEND Nurse Practitioner Family
DX: E11.10 Type 2 diabetes mellitus with ketoacidosis without coma (principal); N39.0 Urinary tract infection, site not specified; K59.00 Constipation, unspecified; Z20.822 Contact with and (suspected) exposure to COVID-19; Z79.84 Long term (current) use of oral hypoglycemic drugs
CPT/HCPCS: 36415; 36600; 71045; 74022; 80048; 80053; 80061; 80307; 81001; 81025; 82010; 82805; 82962; 83036; 83605; 83735; 83930; 84100; 84132; 84702; 85025; 87040; 87081; 87086; 87426; 87804; 96365; 96372; 96375; 99291; G0378; J0696; J1815; J2001; J2405; J3480; J3490; J7060